=== PATIENT | male | born 1980 | race Caucasian/White ===

== ENCOUNTER 2020-09-30 14:28 | Emergency (ER) | payer MEDICAID ==
[~2020-09-30] VITALS: Ht 177.8 cm; Wt 100.0 kg
[2020-09-30 14:34] VITALS: BP 143/86
[2020-09-30] MEDS ORDERED: ALBU8HFA IH (14:37)
== END 2020-09-30 15:31 | disposition left against medical advice (07) ==
LOC: EMS 14:39
DX: R07.9 Chest pain, unspecified (principal); Z53.21 Procedure and treatment not carried out due to patient leaving prior to being seen by health care provider
CPT/HCPCS: 93005